=== PATIENT | male | born 1960 | race Caucasian/White ===

== ENCOUNTER 2020-01-11 14:48 | Outpatient (CLI) | payer BC, SELFPAY ==
--- NOTE | ~2020-01-11 | XR_ITS ---
XR abdomen/kub 1V 01/11/2020 15:35 INDICATION: Flank pain TECHNIQUE: KUB COMPARISON: CT dated 06/01/2015 FINDINGS: Bowel gas pattern is normal. There is a calcified lymph node overlying the left upper abdom en. There are benign calcifications in the pelvis. No definite renal/ureteral stones. There is no rissa dence of free air, mass, organomegaly, ascites or obstruction.. The bones appear intact. IMPRESSION: 1: No acute abdominal abnormality identified. Reviewed, dictated and finalized at location A. ING GRANT ANALYST
--- NOTE | ~2020-01-11 | US_ITS ---
US retroperitoneal comp 01/11/2020 15:47 Procedure: Realtime transabdominal ultrasound of the kidneys and bladder. Indication: Left ureteral stone Comparison: KUB dated 01/11/2012 Findings: Right renal echotexture is normal without hydronephrosis, contour deforming mass or right r enal calculi. Right kidney measures 12 point there is a 3.8 cm left renal cyst. No solid masses, hydr onephrosis or stones are identified. Left kidney measures 12 cm. No focal bladder wall masses are nelsy ntified. Impression: 1: 3.8 cm left renal cyst. Reviewed, dictated and finalized at location A. [employer] FO[employer] ASSOCIATE Impression: 1: 3.8 cm left renal cyst.
== END 2020-01-11 14:49 | disposition home or self-care (01) ==
PROVIDERS: PCP Internal Medicine; Visit Provider Urology
DX: N28.1 Cyst of kidney, acquired (principal)
CPT/HCPCS: 74018; 76770

== ENCOUNTER 2020-10-27 00:35 | Outpatient (CLI) | payer BC, SELFPAY ==
[2020-10-27 23:32] LABS: SARS-CoV-2 RNA PCR Negative
== END 2020-10-27 00:36 | disposition home or self-care (01) ==
LOC: ANHCOVIDDT 00:35
PROVIDERS: PCP Internal Medicine; Visit Provider Internal Medicine Cardiovascular Disease
DX: Z01.812 Encounter for preprocedural laboratory examination (principal); Z20.828 Contact with and (suspected) exposure to other viral communicable diseases
CPT/HCPCS: 87635; C9803; U0003

== ENCOUNTER 2020-10-31 00:51 | Day surgery (SDC) | payer BC, SELFPAY ==
[2020-10-30 16:04] VITALS: BMI 41.2
[2020-10-31 07:53] VITALS: BP 166/81; PULSE 72; RESP 15; TEMP 36.8; O2SAT 99
--- NOTE | 2020-10-31 08:55 | PM.IMHP ---
H&P: HPI History of Present Illness Date/Time: 10/31/20 08:55 Chief complaint: End Of Life Narrative: Bernardino Smith is a 60 year old male here for Medtronic LINQ loop recorder explant. Pt is followed by Dr. Norman for palpitations. A Medtronic LINQ loop recorder was [place] [address] Chavez. The LINQ has showed only occ PVCs and is at [facility]. He also has HTN, morbid obeisty, LAKESHIA on CPAP, left carotid stenosis and h/o CP w/o CAD fr cath 2010. HE is feeling well today, occ palps and orthostatic dizziness but no SOB, cough, CP. HIs son had COVID around [facility], and this procedure was delayed to make sure pt was not also infected. Review of Systems Constitutional: Constitutional: Denies chills and Denies weakness Eyes: Eyes: Reports no additional eye complaints ENT: Denies nasal congestion Cardiovascular: Cardiovascular: Denies chest pain, Denies leg edema, Reports lightheadedness and Denies palpitations Respiratory: Respiratory: Denies cough and Denies dyspnea Gastrointestinal: Gastrointestinal: Denies abdominal pain Genitourinary: Genitourinary: Denies dysuria Musculoskeletal: Musculoskeletal: Reports no additional musculoskeletal complaints Integumentary/Breasts: Skin/Breast: Reports system reviewed and no additional complaints, except as docu Neurologic: Denies confusion [facility] Past Medical History Medical History (Updated 10/31/20 @ 09:02 by Kaleigh Junior MD) Chest pain CAth negative 2010 Dizziness Gout Hypertension Left-sided carotid artery disease Metabolic syndrome Morbid obesity Palpitations with regular cardiac rhythm Sleep apnea with use of continuous positive airway pressure (CPAP) Status post placement of implantable loop recorder 2016; explanted 10/2020 Family History Family History Father Carcinoma of colon Acute myocardial infarction Sibling Family history of diabetes mellitus in first degree relative Other Family history of cardiovascular disease Family history of malignant neoplasm Hypertension Social History Social History (Updated 10/31/20 @ 09:03 by Kaleigh Junior MD) Social History: Patient has never been a smoker. Works at [employer]/ [employer] for [employer]. Smoking status: Never smoker Second hand tobacco smoke exposure: No Alcohol intake: never Substance use type: does not use Living arrangements: with family Meds Home Medications and Allergies Home Medications Medication Instructions Recorded Confirmed Type atorvastatin 40 mg PO DAILY 11/28/19 10/31/20 History nitroglycerin [Nitrostat] 0.4 mg SUBLINGUAL PRN 11/28/19 10/31/20 History icosapent ethyl 1 gram capsule 4 gm PO BID #360 cap 12/23/19 10/31/20 Rx probenecid 500 mg tablet 500 mg PO DAILY #180 tablet 01/09/20 10/31/20 Rx allopurinol 300 mg tablet 300 mg PO DAILY #90 tablet 07/09/20 10/31/20 Rx carvedilol phosphate 80 mg 80 mg PO DAILY #90 cap 07/09/20 10/31/20 Rx capsule,[id number] multiphase metformin 1,000 mg tablet 1,000 mg PO DAILY #90 tablet 07/09/20 10/31/20 Rx ergocalciferol (vitamin D2) 1,250 50,000 unit PO WEEKLY #12 cap 09/17/20 10/31/20 Rx mcg (50,000 unit) capsule amlodipine 5 mg tablet See Rx Instructions .ROUTE 10/08/20 10/31/20 Rx .COMPLEX #90 tablet diclofenac 75 mg-misoprostol 200 See Rx Instructions .ROUTE 10/08/20 10/31/20 Rx mcg tablet,immediate,delayed .COMPLEX #180 tablet release Allergies Allergy/AdvReac Type Severity Reaction Status Date / Time chlorhexidine Allergy Intermediate Rash Verified 10/31/20 07:52 Sulfa (Sulfonamide Allergy Intermediate RASH Verified 10/30/20 16:01 Antibiotics) Vital Signs Vital Signs - 24 hr 10/31/20 07:53 Temperature 98.3 F Pulse Rate 72 Respiratory Rate 15 Blood Pressure 166/81 H Pulse Oximetry 99 Exam Narrative: Exam Narrative: Pleasant middle-aged obese male NAD Const: General: comfortable and no
--- NOTE | 2020-10-31 09:04 | WPDMODSED ---
Moderate Sedation Note-Pt Data Patient Data Diagnosis: Loop REcorder at [facility] Present Complaint: SAme Procedure to be performed/Plan: Explant of loop recorder planning on local anesthesia Allergies Allergy/AdvReac Type Severity Reaction Status Date / Time chlorhexidine Allergy Intermediate Rash Verified 10/31/20 07:52 Sulfa (Sulfonamide Allergy Intermediate RASH Verified 10/30/20 16:01 Antibiotics) Home Medications Medication Instructions Recorded Confirmed Type atorvastatin 40 mg PO DAILY 11/28/19 10/31/20 History nitroglycerin [Nitrostat] 0.4 mg SUBLINGUAL PRN 11/28/19 10/31/20 History icosapent ethyl 1 gram capsule 4 gm PO BID #360 cap 12/23/19 10/31/20 Rx probenecid 500 mg tablet 500 mg PO DAILY #180 tablet 01/09/20 10/31/20 Rx allopurinol 300 mg tablet 300 mg PO DAILY #90 tablet 07/09/20 10/31/20 Rx carvedilol phosphate 80 mg 80 mg PO DAILY #90 cap 07/09/20 10/31/20 Rx capsule,[id number] multiphase metformin 1,000 mg tablet 1,000 mg PO DAILY #90 tablet 07/09/20 10/31/20 Rx ergocalciferol (vitamin D2) 1,250 50,000 unit PO WEEKLY #12 cap 09/17/20 10/31/20 Rx mcg (50,000 unit) capsule amlodipine 5 mg tablet See Rx Instructions .ROUTE 10/08/20 10/31/20 Rx .COMPLEX #90 tablet diclofenac 75 mg-misoprostol 200 See Rx Instructions .ROUTE 10/08/20 10/31/20 Rx mcg tablet,immediate,delayed .COMPLEX #180 tablet release Sedation/Anesthesia: No previous sedation/anesthesia problems (including family history). [facility] Past Medical History Medical History (Updated 10/31/20 @ 09:02 by Kaleigh Junior MD) Chest pain CAth negative 2010 Dizziness Gout Hypertension Left-sided carotid artery disease Metabolic syndrome Morbid obesity Palpitations with regular cardiac rhythm Sleep apnea with use of continuous positive airway pressure (CPAP) Status post placement of implantable loop recorder 2016; explanted 10/2020 Family History Family History Father Carcinoma of colon Acute myocardial infarction Sibling Family history of diabetes mellitus in first degree relative Other Family history of cardiovascular disease Family history of malignant neoplasm Hypertension Social History Social History (Updated 10/31/20 @ 09:03 by Kaleigh Junior MD) Social History: Patient has never been a smoker. Works at [employer] for [employer]. Smoking status: Never smoker Second hand tobacco smoke exposure: No Alcohol intake: never Substance use type: does not use Living arrangements: with family Mod Sed Physical Exam Physical Exam Pre Procedural Exam: Normal: Appearance, Eyes, Ears, Nose, Neck, Airway, Lungs, Heart Size, Heart Rate, Heart Rhythm, Neuro Exam, Abdomen, Extremities and Skin (Well-naomi over loop recorder) and Variation: Throat (fair dentitioin) Hours since solid foods: 12 Hours since liquid intake: 12 Internal Medicine - PN: Obj Da Vital Signs Vital Signs: Vital Signs - 24 hr 10/31/20 07:53 Temperature 98.3 F Pulse Rate 72 Respiratory Rate 15 Blood Pressure 166/81 H Pulse Oximetry 99 ASA Classification/Sedation ASA Classification/Sedation ASA Class: II Risks: Risks, benefits and alternatives explained and patient/family accepted plan for sedation. Patient re-evaluated immediately prior to sedation.
--- NOTE | 2020-10-31 09:38 | PM.OP ---
Procedure Note - Brief Procedure Note - Brief Date of procedure: 10/31/20 Pre-op diagnosis: End Of Life Post-op diagnosis: same Procedure performed: Loop Recorder explant Description of procedure: Uneventful Loop explant w/ local anesthesia Anesthesia: local Surgeon: Kaleigh Junior MD Estimated blood loss (mL): 2 Drains: No Packing: No Pathology: other Complications: No immediate complications Condition: stable Disposition: observation
--- NOTE | 2020-10-31 09:41 | P.OP_ITS ---
Procedure Note - Detailed Date of procedure: 11/02/20 Pre-op diagnosis: End Of Life Post-op diagnosis: same Procedure performed: Explant of Medtronic LINQ loop recorder Description of procedure: Pt was Brought to the cardiac catheterization lab and the chest was sterilely prepped and draped in the usual fashion. He was given local anesthesia over the loop recorder site with 1% lidocaine. A small skin incision was made. Blunt dissection was used to locate the lloop recorder which was grasped with a hemostat, the capsule incised and the recorder removed. The pocket was irrigated with antibiotic containing solution. Hemostasis was ob tained with local pressure. Skin adhesive was applied as well as a sterile dressing. He tolerated the procedure well with no complications. Anesthesia: local Surgeon: Kaleigh Junior MD Estimated blood loss (mL): 2 Drains: No Packing: No Pathology: none sent Complications: No immediate complications Condition: stable
[2020-10-31 09:54] VITALS: BP 172/108; PULSE 66; RESP 16; TEMP 37; O2SAT 100
[2020-10-31 10:15] VITALS: BP 152/98; PULSE 60; RESP 16; TEMP 37; O2SAT 99
== END 2020-10-31 10:25 | disposition home or self-care (01) ==
PROVIDERS: PCP Internal Medicine; Visit Provider Internal Medicine Cardiovascular Disease
PROC: (CPT 33286; principal; 2020-10-31 08:30)
DX: Z45.09 Encounter for adjustment and management of other cardiac device (principal); I10 Essential (primary) hypertension; M10.9 Gout, unspecified; G47.33 Obstructive sleep apnea (adult) (pediatric); I25.10 Atherosclerotic heart disease of native coronary artery without angina pectoris; E66.01 Morbid (severe) obesity due to excess calories; Z68.41 Body mass index [BMI] 40.0-44.9, adult
CPT/HCPCS: 33286; J0690; J7040

== ENCOUNTER 2021-10-10 12:22 | Outpatient (CLI) | payer BC, SELFPAY ==
--- NOTE | ~2021-10-10 | US_ITS ---
EXAMINATION: US carotid duplex BI DATE: 10/10/2021 13:40 INDICATION: Carotid artery disease. TECHNIQUE: Grayscale, color Doppler, and pulsed Doppler images of the cervical carotid arteries were obtained. The degree of vessel stenosis is placed in one of the following categories: normal, <50%, 5 0-69%, >=70% but less than near-occlusion, near-occlusion, or total occlusion. Note that percent sten osis relative to normal distal artery lumen diameter is indirectly measured from velocity measurement s as described by Geovanny, et al. Radiology 2003; [id number]. COMPARISON: Ultrasound 07/18/2019 FINDINGS: RIGHT: The right common carotid artery (CCA) peak systolic velocity (PSV) is 127 cm/s. The right internal ca rotid artery (ICA) PSV is 106 cm/s. The right ICA end-diastolic velocity (EDV) is 35 cm/s. The right ICA/CCA PSV ratio is 0.8. Grayscale and color Doppler images yield an estimate of <50% diameter reduc tion from plaque in the ICA. There is antegrade flow in the right vertebral artery. LEFT: The left CCA PSV is 151 cm/s. The left ICA PSV is 89 cm/s. The left ICA EDV is 28 cm/s. The left ICA/ CCA PSV ratio is 0.6. Grayscale and color Doppler images yield an estimate of <50% diameter reduction from plaque in the ICA. There is antegrade flow in the left vertebral artery. IMPRESSION: 1. <50% stenosis in the right internal carotid artery. 2. <50% stenosis in the left internal carotid artery. Reviewed, dictated and finalized at location A. EDICAL SERVICE ENGINEER
== END 2021-10-10 12:23 | disposition home or self-care (01) ==
PROVIDERS: Visit Provider Internal Medicine Cardiovascular Disease
DX: I65.23 Occlusion and stenosis of bilateral carotid arteries (principal)
CPT/HCPCS: 93880